=== PATIENT | male | born 1995 | race Two or more races ===

== ENCOUNTER 2016-10-18 00:10 | Emergency (ER) | payer MEDICAID ==
[~2016-10-18] VITALS: Ht 160 cm; Wt 65.8 kg
[2016-10-18 02:57] LABS: Hematocrit 43.1 % (41.0-53.0); Hemoglobin 14.5 g/dL (13.5-17.5); Mean Corpuscular Hemoglobin 29.9 pg (28.0-32.0); Mean Corpuscular Hgb Conc. 33.6 g/dL (32.0-36.0); Mean Corpuscular Volume 88.8 fL (80.0-100.0); Platelet Count (auto) 267 10^3/uL (140-450); Red Cell Distribution Width 12.3 % (11.6-16.0); SUSPECT VIEW TRANSMISSION; White Blood Cell 16.6 10^3/uL (4.4-10.8)
[2016-10-18 03:03] LABS: Metamyelocytes % 0; Myelocytes % 0; Promyelocytes % 0; Reactive Lymphocytes 0
[2016-10-18 03:13] LABS: INR 1.02 (0.9-1.15); Partial Thromboplastin Time 24.5 sec (22.64-33.71)
[2016-10-18 03:17] LABS: Albumin 3.8 g/dL (3.4-5.0); Calcium 8.5 mg/dL (8.5-10.1); Potassium 3.9 mmol/L (3.5-5.1)
[2016-10-18 03:19] LABS: BUN/Creatinine Ratio 16.3
[2016-10-18 03:20] LABS: Platelet Estimate Adequate
[2016-10-18 03:21] LABS: RBC Morphology Normal
[2016-10-18 03:22] LABS: Bilirubin, Total 0.8 mg/dL (0.2-1.0); Total Protein 7.9 g/dL (6.4-8.2)
[2016-10-18] MEDS ORDERED: LORazepam 2MG/ML-1ML VIAL IV ONE (03:45)
[2016-10-18] MEDS ORDERED: LIDOCAINE VISCOUS 2% 15ML UD PO ONE (03:45)
[2016-10-18] MEDS ORDERED: SODIUM CHLORIDE 0.9% 1,000 ML IV ONE (03:45)
[2016-10-18] MEDS ORDERED: ALUM & MAG HYDROX-SIMETH LIQ(MAALOX) 30 ML PO ONE (03:45)
[2016-10-18] MEDS ORDERED: ONDANSETRON HCL 4 MG/2 ML VIAL IV ONE (03:45)
[2016-10-18] MEDS ORDERED: DONNATAL 5ml ORAL Elix (BELLADONNA ALK-PHENOBARB) PO ONE (03:45)
[2016-10-18 04:19] VITALS: BP 121/74
== END 2016-10-18 07:20 | disposition home or self-care (01) ==
LOC: ER 00:11
DX: R53.1 Weakness (principal); R06.02 Shortness of breath; R51 Headache
CPT/HCPCS: 36415; 80053; 83690; 85007; 85027; 85610; 85730; 93005; 96374; 99285; J2405